=== PATIENT | female | born 1965 | race Hispanic/Latino ===

== ENCOUNTER 2025-05-11 13:15 | Outpatient (CLI) | payer BC | END 2025-05-11 13:16 | disposition home or self-care (01) | LOC: CSHMAMMO 13:15 | PROVIDERS: ATTEND Family Medicine | DX: Z12.31 Encounter for screening mammogram for malignant neoplasm of breast (principal); Z98.82 Breast implant status | CPT/HCPCS: 77063; 77067 ==